=== PATIENT | female | born 1995 | race Caucasian/White ===

== ENCOUNTER 2018-07-01 21:46 | Emergency (ER) | payer BC, MEDICAID ==
[~2018-07-01] VITALS: Ht 165.1 cm; Wt 116.6 kg
[2018-07-01 21:51] VITALS: Ht 165.1 cm; Wt 116.6 kg
[2018-07-01 23:26] LABS: microscopic required? YES; urine erythrocyte TRACE (NEGATIVE)
[2018-07-01 23:28] LABS: BASOPHIL % 0.5 % (0-2); PLATELET COUNT 334 x10^3mcL (130-400); RED CELL DISTRIBUTION WIDTH 13.2 % (11.5-14.5)
[2018-07-01 23:36] LABS: CALCIUM 8.1 mg/dL (8.5-10.1); CARBON DIOXIDE 24.3 mmol/L (21-32); CHLORIDE SERUM 105 mmol/L (98-107); CREATININE SERUM 0.7 mg/dL (0.6-1.0); GFR1 > 60 mL/min; GLUCOSE SERUM 92 mg/dL (74-106); POTASSIUM SERUM 3.6 mmol/L (3.5-5.1); SODIUM SERUM 141 mmol/L (136-145)
[2018-07-01 23:41] LABS: ALBUMIN 3.7 g/dL (3.4-5.0); ALKALINE PHOSPHATASE 103 U/L (46-116); ALT/SGPT 44 U/L (14-59); AST/SGOT 19 U/L (15-37); BILIRUBIN TOTAL 0.3 mg/dL (0.20-1.00); C REACTIVE PROTEIN 0.9 mg/dL (<=0.9); TOTAL PROTEIN, SERUM 6.8 g/dL (6.4-8.2)
[2018-07-02 00:24] LABS: ERYTHROCYTE SED RATE 17 mm/hr (0-20)
[2018-07-02 01:41] VITALS: BP 115/84
== END 2018-07-02 01:41 | disposition home or self-care (01) ==
LOC: ED 21:46
PROVIDERS: Emergency Medicine
DX: N30.90 Cystitis, unspecified without hematuria (principal); L03.90 Cellulitis, unspecified
CPT/HCPCS: J2270; J7030; Q9967